=== PATIENT | female | born 1990 | race African-American/Black ===

== ENCOUNTER 2017-10-22 21:27 | Emergency (ER) | payer OTHER ==
[2017-10-22 22:28] VITALS: BP 155/89; PULSE 87; TEMP 98.2; BMI 42.9
[2017-10-22] MEDS ORDERED: ALBUTEROL SO4 0.083% IH SOL 2.5 MG/3 ML VIAL.NEB. NEB ONE ×2 (23:19→23:52)
--- NOTE | 2017-10-22 23:22 | PDOC ---
History of Present Illness <Waldo Ortega - Last Filed: 10/23/17 00:50> - General History Source: Patient Exam Limitations: No Limitations - History of Present Illness Initial Comments: 10/23/17 07:04 Patient is a 26 year old female with a significant past medical history of HTN, Asthma, who presents to the ED with complaints of chest pain that began 2 weeks ago. Patient reports experiencing coughing approx 2 weeks ago, then started to be painful in the mid chest whens he coughed. She reports chest pain is a sharp non radiating pain that is increased when she coughs. Patient reports chest pain has been chronic but has recently begun to increase in intensity, prompting her to come into the ED for further evaluation. She reports experiencing intermittent episodes of headache and sneezing. Patient reports using her at home albuterol with no relief. Pt denies any CONWAY, hemoptysis, leg swelling, calf pain. Pt not on any exogenous hormones/OCPs. Denies nausea, vomiting. Denies contact with sick individuals, out of state travelling. Denies abdominal pain, constipation, diarrhea. Denies any other symptoms. Allergies: None Social history: No alcohol. No drinking. No illicit drugs Surgical history: None PMD: Dr. Plunkett <Yemi Ariza - Last Filed: 10/23/17 07:05> - General Chief Complaint: Chest Pain Stated Complaint: CHEST PAIN Time Seen by Provider: 10/22/17 22:17 Past History - Past Medical History Asthma: Yes COPD: No HTN: Yes - Suicide/Smoking/Psychosocial Hx Smoking History: Never smoked Have you smoked in the past 12 months: No Information on smoking cessation initiated: No Hx Alcohol Use: No Drug/Substance Use Hx: No Substance Use Type: None <Waldo Ortega - Last Filed: 10/23/17 00:50> <Yemi Ariza - Last Filed: 10/23/17 07:05> - Past Medical History Allergies/Adverse Reactions: Allergies Allergy/AdvReac Type Severity Reaction Status Date / Time No Known Allergies Allergy Verified 10/22/17 22:13 Home Medications: Ambulatory Orders Benzonatate [Tessalon Pearls -] 100 mg PO TID PRN #12 capsule 10/23/17 Review of Systems - Review of Systems Able to Perform ROS?: Yes Comments:: 10/23/17 07:04 CONSTITUTIONAL: No reported: Fever, Chills, Diaphoresis, Generalized Weakness, Malaise, Loss of Appetite HEENT: +Sneezing. No reported: Rhinorrhea, Nasal Congestion, Throat Pain, Throat Swelling, Difficulty Swallowing, Mouth Swelling, Ear Pain, Eye Pain, Visual Changes CARDIOVASCULAR: +Pleuritic Chest pain. No reported: Syncope, Palpitations, Irregular Heart Rate, Lightheadedness, Peripheral Edema RESPIRATORY: +cough No reported: Shortness of Breath, SOB with Exertion, Orthopnea, Wheezing, Stridor, Hemoptysis GASTROINTESTINAL: No reported: Abdominal pain, Abdominal Distension, Nausea, Vomiting, Diarrhea, Constipation, Melena, Hematochezia GENITOURINARY: No reported: Dysuria, Frequency, Urgency, Hesitancy, Flank Pain, Genital Pain MUSCULOSKELETAL: No reported: Myalgia, Arthralgia, Joint Swelling, Back pain, Neck Pain SKIN: No reported: Rash, Itching, Pallor HEMATOLOGIC/IMMUNOLOGIC: No reported: Easy Bleeding, Easy Bruising, Lymphadenopathy, Frequent infections ENDOCRINE: No reported: Unexplained Weight Gain, Unexplained Weight Loss, Heat Intolerance , Cold Intolerance NEUROLOGIC: No reported: +Headache. Focal Weakness, Paresthesias, Vertigo, Lightheadedness, Unsteady Gait, Seizure, Mental Status Changes, Incontinence PSYCHIATRIC: No reported: Anxiety, Depression <Yemi Ariza - Last Filed: 10/23/17 07:05> *Physical Exam - Vital Signs Last Vital Signs Temp Pulse Resp BP Pulse Ox 98.2 F 87 18 155/89 100 10/22/17 22:08 10/22/17 22:08 10/22/17 22:08 10/22/17 22:08 10/22/17 22:08 <Waldo Ortega - Last Filed: 10/23/17 00:50> - Vital Signs Last Vital Signs Temp Pulse Resp BP Pulse Ox 98.2 F 87 18 155/89 100 10/22/17 22:08 10/22/17 22:08 10/22/17 22:08 10/22/17 22:08 10/22/17 22:08 - Physical Exam Comments: 10/23/17 07:04 GENERAL: +Obese. The patient is awake, alert, and fully oriented, Nontoxic - in no acute distress. HEAD: Normocephalic, atraumatic. EYES: extraocular movements intact, sclera anicteric, conjunctiva clear. ENT: Normal voice, Moist mucous membranes. NECK: Normal range of motion, No JVD LUNGS: Breath sounds equal, clear to auscultation bilaterally. No wheezes, no rhonchi, no rales. HEART: Regular rate and rhythm, normal S1 and S2 without murmur, rub or gallop. ABDOMEN: Soft, nontender, normoactive bowel sounds. No guarding, no rebound. No masses. No CVA tenderness EXTREMITIES: Normal range of motion, no edema. Neg homans sign. No calf tenderness. NEUROLOGICAL: No facial asymmetry, Normal speech, normal gait. PSYCH: Normal mood, normal affect. SKIN: Warm, Dry, normal turgor. <Yemi Ariza - Last Filed: 10/23/17 07:05> Heart Score/ECG Review - ECG Impressions Comment:: 10/22/17 23:25 Twelve-lead EKG was performed and reviewed by me. There is normal sinus rhythm with a normal rate. Rate of 91 [place] is normal Nonspecific T wave flattening in aVF <Waldo Ortega - Last Filed: 10/23/17 00:50> ED Treatment Course - Medications Given in the ED: ED Medications Discontinued Medications Generic Name Dose Route Start Last Admin Trade Name Freq PRN Reason Stop Dose Admin Albuterol Sulfate 1 amp 10/22/17 23:19 10/22/17 23:50 Ventolin 0.083% Nebulizer Soln - NEB 10/22/17 23:20 1 amp ONCE ONE Administration <Yemi Ariza - Last Filed: 10/23/17 07:05> Medical Decision Making - Medical Decision Making 10/22/17 23:20 27y F presents with complaint of intermittent chest pain that is worse with cough, cough is productive of some sputum but she cant cough it out. no associated fever/chills, hemoptysis, conway, leg swelling, calf tenderness. pt endorses some sneezing/headache as well. suspect bronchitis will ck cxr will give neb PERC negative A portion of this note was documented by scribe services under my direction. I have reviewed the details of the note, within reason, and agree with the documentation with the following case summary and management plan written by me <Waldo Ortega - Last Filed: 10/23/17 00:50> *DC/Admit/Observation/Transfer - Discharge Dispostion Admit: No <ShannonWaldo - Last Filed: 10/23/17 00:50> - Attestations Scribe Attestion: 10/23/17 07:05 Documentation prepared by Yemi Ariza, acting as medical biller for Waldo Ortega MD, /DO. <Yemi Ariza - Last Filed: 10/23/17 07:05> Diagnosis at time of Disposition: Cough - Discharge Dispostion Disposition: HOME Condition at time of disposition: Improved - Prescriptions Prescriptions: Benzonatate [Tessalon Pearls -] 100 mg PO TID PRN #12 capsule PRN Reason: Cough - Referrals Referrals: Lee Plunkett MD [Primary Care Provider] - - Patient Instructions Printed Discharge Instructions: DI for Cough -- Adult Additional Instructions: Return to the emergency department immediately with ANY new, persistent or worsening symptoms icnluding difficulty breathing, shortness of breath or any other concerns. Take Robitussin for your cough. Take ibuprofen or tylenol as needed for your pain. You MUST call and follow up with your doctorin 4-5 days for further evaluation of your symptoms. Results were discussed with you. Please make sure your doctor reviews the results of your emergency evaluation. - Post Discharge Activity
--- NOTE | 2017-10-23 08:49 | EKG ---
Test Reason : Blood Pressure : / mmHG Vent. Rate : 091 BPM Atrial Rate : 091 BPM P-R Int : 158 ms QRS Dur : 092 ms QT Int : 372 ms P-R-T Axes : 045 006 011 degrees QTc Int : 457 ms NORMAL SINUS RHYTHM VOLTAGE CRITERIA FOR LEFT VENTRICULAR HYPERTROPHY ABNORMAL ECG NO PREVIOUS ECGS AVAILABLE Confirmed by IBIS WINCHESTER MD ([id number]) on 10/23/2017 8:49:17 AM Referred By: Confirmed By:IBIS WINCHESTER MD
== END 2017-10-23 01:23 | disposition home or self-care (01) ==
LOC: JER 21:27
PROC: 3E0F7GC Introduction of Other Therapeutic Substance into Respiratory Tract, Via Natural or Artificial Opening (ICD-10-PCS; principal; 2017-10-22)
DX: R05 Cough (principal); J45.909 Unspecified asthma, uncomplicated; I10 Essential (primary) hypertension
CPT/HCPCS: 71046-TC-FY; 93005; 93010; 94640; 99281-25